=== PATIENT | female | born 1995 | race Caucasian/White ===

== ENCOUNTER 2018-02-10 23:14 | Inpatient (IN) | payer OTHER, BC ==
[2018-02-11] MEDS ORDERED: Oxytocin/0.9 % Sodium Chloride 30 UNIT/500 ML BAG ONE (02:40)
[2018-02-11] MEDS ORDERED: Lidocaine 1% 50 ML MDV ONE (02:42)
--- NOTE | 2018-02-11 05:19 | OR ---
SURGEON: Naomi Monteiro M.D. DATE OF PROCEDURE: 02/11/2018 PREOPERATIVE DIAGNOSES: 1. A 41 and 4 weeks' intrauterine . 2. Active labor. POSTOPERATIVE DIAGNOSIS: 1. A 41 and 4 weeks' intrauterine . 2. Active labor. PROCEDURES: Spontaneous vaginal delivery, second-degree midline laceration repaired. ANESTHESIA: Local. ESTIMATED FLUID LOSS: 300 mL. FINDINGS: Term male, score 9 at 1 minute, 9 at 5 minutes. Weight is pending. Spontaneous delivery, intact placenta, 3-vessel cord. DISPOSITION: Infant to nursery, mom in LDRP. PROCEDURE IN DETAIL: Angela is a 22-year-old, G3, P2-0-0-2 at 41 and 4 weeks' gestational age, who presents early this morning with regular contractions, and shortly after 1:00 a.m. at approximately 1:25 a.m., had leakage of fluids, clear fluid. She is group B beta strep negative. Therefore, she was admitted. Routine labs drawn. IV hydration was initiated. She was found to be 7 cm and quickly progressed to complete. heart tones remained in 130s to 140s with variability. The patient was feeling the urge to push. Therefore, she was placed in modified dorsal lithotomy position and was prepped and draped in the usual aseptic manner. Was able to push with the next contraction, was able to deliver 's head atraumatically, spontaneously, followed by anterior shoulder, posterior shoulder, and the remainder of the body without difficulty. The 's oropharynx and nares were bulb suctioned. Cord clamped x2 and cut. was handed off to his mother, attending nursing staff at her side. Cord arterial, cord venous, cord blood sampling obtained. Light pressure was applied while the placenta was delivered spontaneously intact. Vigorous fundal uterine massage was then applied while 30 units of Pitocin was delivered in 500 mL of fluid. Upon inspection of cervix, vaginal sidewall, and perineum, there was found to be a second-degree midline laceration repaired using 3-0 Vicryl after prepping the region with approximately 7 mL of 1% lidocaine. The patient tolerated the repair well. She will remain in LDRP. Infant in nursery. MANA / LAST /[id number]
[2018-02-11] MEDS ORDERED: Lanolin 100% Cream 7 GM Tube TOP PRN (06:18)
[2018-02-11] MEDS ORDERED: Benzocaine/Menthol 20%-0.5% Spray 78 GM Cannister TOP PRN (06:18)
[2018-02-11] MEDS ORDERED: oxyCODONE 5 MG Tab PO PRN (06:18)
[2018-02-11] MEDS ORDERED: Docusate Sodium 100 MG Cap PO PRN (06:18)
[2018-02-11] MEDS ORDERED: Ibuprofen 800 MG Tab PO PRN (06:18)
[2018-02-11] MEDS ORDERED: Ibuprofen 400 MG Tab PO PRN (06:18)
[2018-02-11] MEDS ORDERED: Bisacodyl 10 MG Supp RECTAL PRN (06:18)
[2018-02-11] MEDS ORDERED: Acetaminophen 500 MG Tab PO PRN ×2 (06:18)
[2018-02-11] MEDS ORDERED: Witch Hazel Medicated Pads 40/Jar TOP PRN (06:18)
--- NOTE | 2018-02-12 07:52 | PCM.PNPP ---
- General Info Date of Service: 02/12/18 Admission Dx/Problem (Free Text): 22 yo P3 s/p PPD 1 Subjective Update: Patient seen denies any complains ambulating , voiding and tolerating regular diet Functional Status: Reports: Pain Controlled, Tolerating Diet, Ambulating, Urinating - Review of Systems General: Reports: No Symptoms HEENT: Reports: No Symptoms Pulmonary: Reports: No Symptoms Cardiovascular: Reports: No Symptoms Gastrointestinal: Reports: No Symptoms Genitourinary: Reports: No Symptoms Musculoskeletal: Reports: No Symptoms Skin: Reports: No Symptoms Neurological: Reports: No Symptoms Psychiatric: Reports: No Symptoms - General Info Date of Service: 02/12/18 - Patient Data Vital Signs - Most Recent: Last Vital Signs Temp 37.0 C 02/12/18 03:45 Pulse 66 02/12/18 03:45 Resp 16 02/12/18 03:45 BP 107/65 02/12/18 03:45 Pulse Ox 98 02/12/18 03:45 Weight - Most Recent: 54.431 kg Lab Results - Last 24 Hours: Laboratory Results - last 24 hr 02/12/18 Range/Units 04:40 Hgb 9.1 L (12.0-16.0) g/dL Hct 29.1 L (36.0-46.0) % Med Orders - Current: Current Medications Acetaminophen (Tylenol Extra Strength) 500 mg PO Q4H PRN PRN Reason: Pain Acetaminophen (Tylenol Extra Strength) 1,000 mg PO Q4H PRN PRN Reason: Pain Benzocaine/Menthol (Dermoplast Pain Relief 20%-0.5% [place]) 78 gm TOP ASDIRECTED PRN PRN Reason: Perineal Comfort Measure Last Admin: 02/11/18 08:15 Dose: 1 can Bisacodyl (Dulcolax) 10 mg RECTAL .ONCE PRN PRN Reason: Constipation Docusate Sodium (Colace) 100 mg PO BID PRN PRN Reason: Constipation Emollient Ointment (Lansinoh Hpa) 0 gm TOP ASDIRECTED PRN PRN Reason: Sore Nipples Ibuprofen (Motrin) 400 mg PO Q4H PRN PRN Reason: Pain Ibuprofen (Motrin) 800 mg PO Q6H PRN PRN Reason: Pain Last Admin: 02/11/18 16:07 Dose: 800 mg Oxycodone HCl (Oxycodone) 5 mg PO Q2H PRN PRN Reason: Pain Witch Cate (Tucks) 1 pad TOP ASDIRECTED PRN PRN Reason: comfort care Discontinued Medications Oxytocin/Sodium Chloride (Oxytocin 30 Unit/500 Ml-Ns) Confirm Administered Dose 30 unit in 500 mls @ as directed .ROUTE .STK-MED ONE Stop: 02/11/18 02:41 Last Admin: 02/11/18 08:50 Dose: Not Given Lidocaine HCl (Xylocaine 1%) Confirm Administered Dose 50 ml .ROUTE .STK-MED ONE Stop: 02/11/18 02:43 Last Admin: 02/11/18 08:50 Dose: Not Given - Infant Interaction Support Person: - Recovery Exam Fundal Tone: Firm Fundal Level: 2 Fingerbreadths Below Umbilicus Fundal Placement: Midline Lochia Amount: Scant Lochia Color: Rubra/Red Perineum Description: Intact, Minimal Bruising/Swelling Other Perinuem Description: 2nd degree laceration Episiotomy/Laceration: Approximated Bladder Status: Voiding Urinary Elimination: Voided - Exam General: Alert HEENT: Pupils Equal Lungs: Clear to Auscultation Cardiovascular: Regular Rate, Regular Rhythm GI/Abdominal Exam: Normal Bowel Sounds Extremities: Normal Inspection Skin: Warm - Problem List & Annotations (1) Vaginal delivery SNOMED Code(s): 449547896 Code(s): O80 - ENCOUNTER FOR FULL-TERM UNCOMPLICATED DELIVERY Status: Acute Current Visit: Yes - Problem List Review Problem List Initiated/Reviewed/Updated: Yes - Assessment Assessment:: 22 yo P3 s/p PPD1 stable - Plan Plan:: Discharge home
[2018-02-12 08:30] VITALS: BP 101/63
== END 2018-02-12 10:25 | disposition home or self-care (01) | DRG 775 ==
LOC: MW.OBCHECK 23:14 → MW.OB 23:15 → MW.OBCHECK 02-11 00:18 → MW.OB 02-11 00:18 → OBSVTOIN 02-11 03:09 → MW.OB 02-11 06:40
PROVIDERS: ADMIT Obstetrics & Gynecology; ATTEND Obstetrics & Gynecology
PROC: 10E0XZZ Delivery of Products of Conception, External Approach (ICD-10-PCS; principal; 2018-02-11)
PROC: 0KQM0ZZ Repair Perineum Muscle, Open Approach (ICD-10-PCS; 2018-02-11)
DX: O70.1 Second degree perineal laceration during delivery (principal); Z37.0 Single live birth; Z3A.41 41 weeks gestation of pregnancy
CPT/HCPCS: 36415; 59025; 59409; 82803; 84112; 85014; 85018; 85027; A9270-GY; J2590

== ENCOUNTER 2020-02-12 21:59 | Emergency (ER) | payer OTHER ==
[2020-02-12] MEDS ORDERED: Sodium Chloride 0.9% 2.5 ML Syringe FLUSH PRN (22:23)
[2020-02-12] MEDS ORDERED: Lactated Ringers 1,000 ML IV ONE ×2 (22:23)
[2020-02-12] MEDS ORDERED: Sodium Chloride 0.9% 10 ML Syringe FLUSH PRN (22:23)
[2020-02-12] MEDS ORDERED: Sodium Chloride 0.9% 10 ML SDV IV PRN (22:23)
[2020-02-12 22:59] LABS: BLOOD UREA NITROGEN,BUN 3 mg/dL (7.0-18.0); CARBON DIOXIDE,CO2 21.4 mmol/L (21.0-32.0); CHLORIDE,CL 104 mmol/L (98-107); GLUCOSE RANDOM 110 mg/dL (74-106); POTASSIUM,K 3.3 mmol/L (3.5-5.1); SODIUM,NA 138 mmol/L (136-145)
--- NOTE | 2020-02-12 23:27 | EDM.PDOC ---
ED HPI GENERAL MEDICAL PROBLEM - General Chief Complaint: Cardiovascular Problem Stated Complaint: HEART PALPITATIONS Time Seen by Provider: 02/12/20 22:00 Source of Information: Reports: Patient History Limitations: Reports: No Limitations - History of Present Illness INITIAL COMMENTS - FREE TEXT/NARRATIVE: This patient is a 24-year-old female, approximately 13 weeks hyperthyroidism (on PTU), hyperemesis gravidarum presenting with palpitations. Patient states that she frequently receives IV fluid infusions for hyperemesis gravidarum and last had an infusion today. - Related Data Allergies Allergy/AdvReac Type Severity Reaction Status Date / Time No Known Allergies Allergy Verified 02/12/20 22:25 Home Meds: Home Meds Pnv No.95/Ferrous Fum/Folic AC [ Tablet] 1 tab PO DAILY 02/10/18 [ History] Metoprolol Succinate [Toprol XL] 25 mg PO DAILY 02/12/20 [History] Ondansetron [Zofran ODT] 4 mg PO Q6H PRN 02/12/20 [History] propylthiouraciL [Propylthiouracil] 50 mg PO TID 02/12/20 [History] Past Medical History HEENT History: Reports: None Cardiovascular History: Reports: Other (See Below) Other Cardiovascular History: Palpitations Respiratory History: Reports: None Gastrointestinal History: Reports: None Genitourinary History: Reports: None PSYCHOLOGIST CLINICAL History: Reports: Musculoskeletal History: Reports: None Neurological History: Reports: None Psychiatric History: Reports: None Endocrine/Metabolic History: Reports: Hyperthyroidism Insulin Pump Model and Admitting Office Escort: None Hematologic History: Reports: None Immunologic History: Reports: None Oncologic (Cancer) History: Reports: None Dermatologic History: Reports: None - Infectious Disease History Infectious Disease History: Reports: None - Past Surgical History Head Surgeries/Procedures: Reports: None HEENT Surgical History: Reports: Oral Surgery Female Surgical History: Reports: None Social & Family History - Family History Family Medical History: Noncontributory - Tobacco Use Smoking Status *Q: Never Smoker - Caffeine Use Caffeine Use: Reports: None - Recreational Drug Use Recreational Drug Use: No ED ROS GENERAL - Review of Systems Review Of Systems: See Below Constitutional: Denies: Fever HEENT: Reports: No Symptoms Respiratory: Denies: Shortness of Breath Cardiovascular: Reports: Palpitations. Denies: Chest Pain, Edema, Lightheadedness, Orthopnea, Syncope Endocrine: Reports: No Symptoms GI/Abdominal: Denies: Abdominal Pain, Nausea, Vomiting : Reports: No Symptoms Musculoskeletal: Reports: No Symptoms Skin: Reports: No Symptoms Neurological: Reports: No Symptoms Psychiatric: Reports: No Symptoms Hematologic/Lymphatic: Reports: No Symptoms Immunologic: Reports: No Symptoms ED EXAM, GENERAL - Physical Exam Exam: See Below Free Text/Narrative:: Vital signs reviewed. Nursing notes reviewed. Constitutional: Awake, alert, non-distressed Head: Normocephalic, atraumatic Eyes: EOMI, conjunctiva normal, no discharge, no scleral icterus Ears, Nose, Throat: External ears and ears normal, moist oral mucosa, no thyromegaly Cardiovascular: Tachycardic, 2+ radial pulse, capillary refill less than 2 seconds Pulmonary: normal work of breathing, no accessory muscle use Abdomen/GI: Soft, nontender, nondistended, no guarding or rigidity, no masses Musculoskeletal: No deformities Integumentary: Appropriate color for ethnicity, warm, dry, no pallor or jaundice , no rash Neurologic: Alert, answering questions appropriately, normal speech, no facial droop, moving all extremities well Psychiatric: Appropriate mood and affect, normal thought process EKG INTERPRETATION EKG Date: 02/12/20 Time: 22:17 Rhythm: Other (Sinus tachycardia) Rate (Beats/Min): 113 [place]: Normal P-Wave: Present QRS: Other (Incomplete right bundle branch block) ST-T: Other (T wave inversions in V2) EKG Interpretation Comments: Subtle, nondiagnostic ST segment depressions in leads III, aVF, V3. Course - Vital Signs Text/Narrative:: 24-year-old female presenting with palpitations. On arrival she was initially tachycardic but afebrile, well-appearing, looks nontoxic. Twelve-lead EKG was obtained showing sinus tachycardia but no acute ischemia or ectopy. IV access was established and labs were sent. Patient received 2 L of lactated Ringer's with normalization of her heart rate. Labs returned with a CBC showing normal cell lines, chemistry panel shows mild hypokalemia to 3.3. Renal function is normal. Troponin testing is negative. TSH is undetectable, free T4 is 2.39 which is not far from her baseline. After fluid resuscitation, her heart rate normalized and she was no longer feeling palpitations. Her twelve-lead EKG did show some subtle ST segment depression, but the patient never experienced any chest discomfort or shortness of breath. Given these facts, I am not concerned for myocardial ischemia, also her troponin I testing is negative. She is well-appearing and her symptoms totally resolved after fluids. She is stable to discharge home with outpatient primary care follow- up. I recommended that she get in contact with the doctor who prescribing her hyperthyroid medications to have them reevaluated given her intermittent palpitations. Strict ED return precautions were provided. She was discharged in good condition, all questions answered prior to departure. Last Recorded V/S: Last Vital Signs Temp 36.4 C 02/12/20 22:00 Pulse 97 02/13/20 00:30 Resp 16 02/13/20 00:30 BP 119/74 02/13/20 00:30 Pulse Ox 98 02/13/20 00:30 - Orders/Labs/Meds Orders: Active Orders 24 hr Category Date Time Status Cardiac Monitoring [RC] . DIRECTED Care 02/12/20 22:23 Active EKG 12 Lead [EKG Documentation Completion] [RC] STAT Care 02/12/20 22:35 Active Sodium Chloride 0.9% [Normal Saline] Med 02/12/20 22:23 Active 10 ml IV ASDIRECTED PRN Sodium Chloride 0.9% [Saline Flush] Med 02/12/20 22:23 Active 10 ml FLUSH ASDIRECTED PRN Sodium Chloride 0.9% [Saline Flush] Med 02/12/20 22:23 Active 2.5 ml FLUSH ASDIRECTED PRN Peripheral IV Insertion Adult [OM.PC] Stat Oth 02/12/20 22:23 Ordered Medication Orders Sodium Chloride (Saline Flush) 10 ml FLUSH ASDIRECTED PRN PRN Reason: Keep Vein Open Last Admin: 02/13/20 00:28 Dose: 10 ml Sodium Chloride (Saline Flush) 2.5 ml FLUSH ASDIRECTED PRN PRN Reason: Keep Vein Open Last Admin: 02/13/20 00:28 Dose: 2.5 ml Sodium Chloride (Normal Saline) 10 ml IV ASDIRECTED PRN PRN Reason: IV Use Labs: Laboratory Tests 02/12/20 02/12/20 02/12/20 Range/Units 22:25 22:25 23:27 WBC 8.03 (4.0-11.0) K/uL RBC 4.85 (4.30-5.90) M/uL Hgb 14.3 (12.0-16.0) g/dL Hct 40.2 (36.0-46.0) % MCV 82.9 (80.0-98.0) fL MCH 29.5 (27.0-32.0) pg MCHC 35.6 (31.0-37.0) g/dL RDW Std Deviation 37.2 (28.0-62.0) fl RDW Coeff of Lxe 12 (11.0-15.0) % Plt Count 276 (150-400) K/uL MPV 9.90 (7.40-12.00) fL Neut % (Auto) 56.1 (48.0-80.0) % Lymph % (Auto) 34.5 (16.0-40.0) % [place] % (Auto) 8.6 (0.0-15.0) % Eos % (Auto) 0.7 (0.0-7.0) % Baso % (Auto) 0.1 (0.0-1.5) % Neut # (Auto) 4.5 (1.4-5.7) K/uL Lymph # (Auto) 2.8 H (0.6-2.4) K/uL [place] # (Auto) 0.7 (0.0-0.8) K/uL Eos # (Auto) 0.1 (0.0-0.7) K/uL Baso # (Auto) 0.0 (0.0-0.1) K/uL Nucleated RBC % 0.0 /100WBC Nucleated RBCs # 0 K/uL Sodium 138 (136-145) mmol/L Potassium 3.3 L (3.5-5.1) mmol/L Chloride 104 (98-107) mmol/L Carbon Dioxide 21.4 (21.0-32.0) mmol/L BUN 3 L (7.0-18.0) mg/dL Creatinine 0.6 (0.6-1.0) mg/dL Est Cr Clr Drug Dosing 131.25 mL/min Estimated GFR (MDRD) > 60.0 ml/min Glucose 110 H (74-106) mg/dL Calcium 8.5 (8.5-10.1) mg/dL Total Bilirubin 0.4 (0.2-1.0) mg/dL AST 15 (15-37) IU/L ALT 9 L (14-63) IU/L Alkaline Phosphatase 58 (46-116) U/L Troponin I < 0.050 (0.000-0.056) ng/mL Total Protein 6.1 L (6.4-8.2) g/dL Albumin 3.2 L (3.4-5.0) g/dL Globulin 2.9 (2.6-4.0) g/dL Albumin/Globulin Ratio 1.1 (0.9-1.6) Free T4 2.39 H (0.76-1.46) ng/dL TSH 3rd Generation 0.00 L (0.36-3.74) uIU/mL Meds: Medications Generic Name Dose Route Start Last Admin Trade Name Freq PRN Reason Stop Dose Admin Sodium Chloride 10 ml 02/12/20 22:23 02/13/20 00:28 Saline Flush FLUSH 10 ml ASDIRECTED PRN Administration Keep Vein Open Sodium Chloride 2.5 ml 02/12/20 22:23 02/13/20 00:28 Saline Flush FLUSH 2.5 ml ASDIRECTED PRN Administration Keep Vein Open Sodium Chloride 10 ml 02/12/20 22:23 Normal Saline IV ASDIRECTED PRN IV Use Discontinued Medications Generic Name Dose Route Start Last Admin Trade Name Freq PRN Reason Stop Dose Admin Lactated Ringer's 1,000 mls @ 1,000 mls/hr 02/12/20 22:23 02/12/20 22:33 Ringers, Lactated IV 02/12/20 23:22 1,000 mls/hr .BOLUS ONE Administration Lactated Ringer's 1,000 mls @ 1,000 mls/hr 02/12/20 22:23 02/12/20 23:40 Ringers, Lactated IV 02/12/20 23:22 1,000 mls/hr .BOLUS ONE Administration Departure - Departure Time of Disposition: 00:45 Disposition: Home, Self-Care 01 Condition: Good Clinical Impression: Intermittent palpitations, Hypokalemia Instructions: Hypokalemia, Palpitations Referrals: [facility] - [facility] Practice [Provider Group] - 1 Week (You should contact your primary medical doctor or establish care with a primary medical clinic in the next week for reevaluation of your symptoms.) Forms: ED Department Discharge Additional Instructions: Your potassium level was slightly low, you can increase this by eating certain foods that have high potassium content such as black beans, tomato sauce, potatoes, bananas, etc. I also recommend getting in contact with the doctor that is managing your hyperthyroidism medications to have them reevaluated given your palpitations. Please return to the emergency department immediately if you are feeling worse. The following information is given to patients seen in the emergency department who are being discharged to home. This information is to outline your options for follow-up care. We provide all patients seen in our emergency department with a follow-up referral. The need for follow-up, as well as the timing and circumstances, are variable depending upon the specifics of your emergency department visit. If you don't have a primary care physician on staff, we will provide you with a referral. We always advise you to contact your personal physician following an emergency department visit to inform them of the circumstance of the visit and for follow-up with them and/or the need for any referrals to a consulting specialist. The emergency department will also refer you to a specialist when appropriate. This referral assures that you have the opportunity for follow-up care with a specialist. All of these measure are taken in an effort to provide you with optimal care, which includes your follow-up. Under all circumstances we always encourage you to contact your private physician who remains a resource for coordinating your care. When calling for follow-up care, please make the office aware that this follow-up is from your recent emergency room visit. If for any reason you are refused follow-up, please contact the [facility] Emergency Department at and asked to speak to the emergency department charge nurse. Sepsis Event Note - Evaluation Sepsis Screening Result: No Definite Risk - Focused Exam Vital Signs: Vital Signs Temp Pulse Resp BP Pulse Ox 02/13/20 00:30 97 16 119/74 98 02/13/20 00:04 92 121/71 100 02/12/20 23:34 90 121/70 99 02/12/20 22:39 93 18 119/73 98 02/12/20 22:00 36.4 C 135 H 18 148/94 H 98 Date Exam was Performed: 02/13/20 Time Exam was Performed: 00:41 - My Orders Last 24 Hours: My Active Orders 02/12/20 22:23 Cardiac Monitoring [RC] . DIRECTED Sodium Chloride 0.9% [Normal Saline] 10 ml IV ASDIRECTED PRN Sodium Chloride 0.9% [Saline Flush] 10 ml FLUSH ASDIRECTED PRN Sodium Chloride 0.9% [Saline Flush] 2.5 ml FLUSH ASDIRECTED PRN Peripheral IV Insertion Adult [OM.PC] Stat 02/12/20 22:35 EKG 12 Lead [EKG Documentation Completion] [RC] STAT - Assessment/Plan Last 24 Hours: My Active Orders 02/12/20 22:23 Cardiac Monitoring [RC] . DIRECTED Sodium Chloride 0.9% [Normal Saline] 10 ml IV ASDIRECTED PRN Sodium Chloride 0.9% [Saline Flush] 10 ml FLUSH ASDIRECTED PRN Sodium Chloride 0.9% [Saline Flush] 2.5 ml FLUSH ASDIRECTED PRN Peripheral IV Insertion Adult [OM.PC] Stat 02/12/20 22:35 EKG 12 Lead [EKG Documentation Completion] [RC] STAT
[2020-02-13 00:59] VITALS: BP 117/72; PULSE 96
== END 2020-02-13 00:57 | disposition home or self-care (01) ==
LOC: MW.ED 21:59
DX: O99.281 Endocrine, nutritional and metabolic diseases complicating pregnancy, first trimester (principal); E87.6 Hypokalemia; Z3A.13 13 weeks gestation of pregnancy; Z79.899 Other long term (current) drug therapy
CPT/HCPCS: 36415; 80053; 84439; 84443; 84484; 85025; 93005; 99285; J7120; 99283

== ENCOUNTER 2020-08-24 12:30 | Inpatient (IN) | payer OTHER ==
[2020-08-24] MEDS ORDERED: Tranexamic Acid 1,000 MG in Sodium Chloride 0.9% 100 ML IV PRN (13:12)
[2020-08-24] MEDS ORDERED: Butorphanol 1 MG/ML SDV IVPUSH PRN (13:12)
[2020-08-24] MEDS ORDERED: Lidocaine 1% 50 ML MDV INJECT PRN (13:12)
[2020-08-24] MEDS ORDERED: Nalbuphine 10 MG/1 ML Vial IVPUSH PRN (13:12)
[2020-08-24] MEDS ORDERED: Sodium Chloride 0.9% 2.5 ML Syringe FLUSH PRN (13:12)
[2020-08-24] MEDS ORDERED: Carboprost Tromethamine 250 MCG/1 ML Amp IM PRN (13:12)
[2020-08-24] MEDS ORDERED: Misoprostol 200 MCG Tab PO PRN (13:12)
[2020-08-24] MEDS ORDERED: Sodium Chloride 0.9% 10 ML SDV IV PRN (13:12)
[2020-08-24] MEDS ORDERED: Sodium Chloride 0.9% 10 ML Syringe FLUSH PRN (13:12)
[2020-08-24] MEDS ORDERED: Water For Irrigation,Sterile 1,000 ML Container IRR PRN (13:12)
[2020-08-24] MEDS ORDERED: Methylergonovine 0.2 MG/1 ML Amp IM PRN (13:12)
[2020-08-24] MEDS ORDERED: Lactated Ringers 1,000 ML IV SCH (13:15)
[2020-08-24] MEDS ORDERED: Oxytocin/0.9 % Sodium Chloride 30 UNIT/500 ML BAG IV SCH (13:15)
--- NOTE | 2020-08-24 14:01 | PCM.LDHP ---
L&D History of Present Illness - General Date of Service: 08/24/20 Admit Problem/Dx: Patient Status Order with Admit Dx/Problem 08/24/20 13:13 Patient Status [ADT] Routine Admission Diagnosis/Problem Admission Diagnosis/Problem Source of Information: Patient History Limitations: Reports: No Limitations - History of Present Illness Introduction:: 25yo F at 40w3d GA presented today in labor. care complicated by hyperthyroidism, that reverted to subclinical hypothyroidism. Currently on Metoprolol and vitamins only. She is also Rh negative, but has declined rhogam throughout the . Reports she started feeling increasing pressure since last night, and contractions every 1hour. 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: Musculoskeletal History: Reports: None Neurological History: Reports: None Psychiatric History: Reports: None Endocrine/Metabolic History: Reports: Hyperthyroidism, Hypothyroidism 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 Hematologic History: Reports: None Immunologic History: Reports: None Oncologic (Cancer) History: Reports: None Dermatologic History: Reports: None - Infectious Disease History Infectious Disease History: Reports: None - Past Surgical History Head Surgeries/Procedures: Reports: None HEENT Surgical History: Reports: Oral Surgery Female Surgical History: Reports: None Social & Family History - Family History Family Medical History: No Pertinent Family History - Caffeine Use Caffeine Use: Reports: None H&P Review of Systems - Review of Systems: Review Of Systems: See Below General: Reports: No Symptoms HEENT: Reports: No Symptoms Pulmonary: Reports: No Symptoms Cardiovascular: Reports: No Symptoms Genitourinary: Reports: No Symptoms Musculoskeletal: Reports: No Symptoms Skin: Reports: No Symptoms Psychiatric: Reports: No Symptoms L&D Exam - Exam Exam: See Below - Vital Signs Weight: 66.678 kg - OB Specific Contraction Duration (sec): 45s Contraction Frequency (min): 2-3mns Contraction Intensity: Mild to Moderate Movement: Active Heart Tones: Present Heart Rate (FHR) Variability: Moderate (6-25 bmp) Presentation: Vertex Estimated Weight: 6"12 - Elizabeth Score Elizabeth Score Cervix Position: Midposition Elizabeth Score Consistency: Soft Elizabeth Score Effacement: >80% Elizabeth Score Dilation: > 5 cm Elizabeth Score Infant's Station: -1 ,0 Elizabeth Score Total: 11 - Patient Data Lab Results Last 24 hrs: Laboratory Results - last 24 hr 08/24/20 Range/Units 13:10 WBC 12.58 H (4.0-11.0) K/uL RBC 4.80 (4.30-5.90) M/uL Hgb 12.1 (12.0-16.0) g/dL Hct 38.5 (36.0-46.0) % MCV 80.2 (80.0-98.0) fL MCH 25.2 L (27.0-32.0) pg MCHC 31.4 (31.0-37.0) g/dL RDW Std Deviation 41.5 (28.0-62.0) fl RDW Coeff of Lex 14 (11.0-15.0) % Plt Count 278 (150-400) K/uL MPV 9.70 (7.40-12.00) fL Nucleated RBC % 0.0 /100WBC Nucleated RBCs # 0 K/uL Result Diagrams: 08/24/20 13:10 - Problem List (1) Term SNOMED Code(s): 39889489 ICD Code: Z34.90 - ENCNTR FOR SUPRVSN OF NORMAL , UNSP, UNSP TRIMESTER Status: Acute Priority: Medium Current Visit: Yes (2) Active labor at term SNOMED Code(s): 34376544 ICD Code: [id number] - Status: Acute Priority: High Current Visit: Yes Problem List Initiated/Reviewed/Updated: Yes Orders Last 24hrs: Active Orders 24 hr Category Date Time Status Patient Status [ADT] Routine ADT 08/24/20 13:13 Active Heart Tones [RC] CONTINUOUS Care 08/24/20 13:13 Active Non Stress Test [RC] PER UNIT ROUTINE Care 08/24/20 13:13 Active May Shower [RC] ASDIRECTED Care 08/24/20 13:13 Active Notify Provider [RC] PRN Care 08/24/20 13:13 Active Up ad Geraldine [RC] ASDIRECTED Care 08/24/20 13:13 Active Vaginal Exam [RC] PRN Care 08/24/20 13:13 Active Vital Signs [RC] PER UNIT ROUTINE Care 08/24/20 13:13 Active CORONAVIRUS COVID-19 DREW [MOLEC] Stat Lab 08/24/20 13:17 Received RPR (SYPHILIS SERO) W/ RFLX [REF] Routine Lab 08/24/20 13:10 Received TYPE AND SCREEN [BBK] Routine Lab 08/24/20 13:10 Received Butorphanol [Stadol] Med 08/24/20 13:12 Active 1 mg IVPUSH Q1H PRN Carboprost Tromethamine [Hemabate DS] Med 08/24/20 13:12 Active 250 mcg IM ASDIRECTED PRN Lactated Ringers [Ringers, Lactated] 1,000 ml Med 08/24/20 13:15 Active IV ASDIRECTED Lidocaine 1% [Xylocaine 1%] Med 08/24/20 13:12 Active 50 ml INJECT ONETIME PRN Methylergonovine [Methergine] Med 08/24/20 13:12 Active 0.2 mg IM ASDIRECTED PRN Nalbuphine [Nubain] Med 08/24/20 13:12 Active 10 mg IVPUSH Q1H PRN Oxytocin/0.9 % Sodium Chloride [Oxytocin 30 Unit/500 ML Med 08/24/20 13:15 Active -NS] 30 unit in 500 ml IV TITRATE Sodium Chloride 0.9% [Normal Saline] Med 08/24/20 13:12 Active 10 ml IV ASDIRECTED PRN Sodium Chloride 0.9% [Saline Flush] Med 08/24/20 13:12 Active 10 ml FLUSH ASDIRECTED PRN Sodium Chloride 0.9% [Saline Flush] Med 08/24/20 13:12 Active 2.5 ml FLUSH ASDIRECTED PRN Tranexamic Acid [Cyklokapron] 1,000 mg Med 08/24/20 13:12 Active Sodium Chloride 0.9% [Normal Saline] 100 ml IV ONETIME Water For Irrigation,Sterile [Sterile Water for Med 08/24/20 13:12 Active Irrigation] 1,000 ml IRR ASDIRECTED PRN miSOPROStoL [Cytotec] Med 08/24/20 13:12 Active 200 mcg PO ONETIME PRN Scalp Electrode [WOMSER] Per Unit Routine Oth 08/24/20 13:13 Ordered Peripheral IV Insertion Adult [OM.PC] Routine Oth 08/24/20 13:13 Ordered Resuscitation Status Routine Resus Stat 08/24/20 13:12 Ordered Medication Orders Butorphanol Tartrate (Stadol) 1 mg IVPUSH Q1H PRN PRN Reason: Pain Carboprost Tromethamine (Hemabate Ds) 250 mcg IM ASDIRECTED PRN PRN Reason: Post Hemorrhage Oxytocin/Sodium Chloride (Oxytocin 30 Unit/500 Ml-Ns) 30 unit in 500 mls @ 999 mls/hr IV TITRATE ALISON Tranexamic Acid 1,000 mg/ (Sodium Chloride) 110 mls @ 660 mls/hr IV ONETIME PRN PRN Reason: Bleeding Lactated Ringer's (Ringers, Lactated) 1,000 mls @ 150 mls/hr IV ASDIRECTED ALISON Lidocaine HCl (Xylocaine 1%) 50 ml INJECT ONETIME PRN PRN Reason: Laceration repair Methylergonovine Maleate (Methergine) 0.2 mg IM ASDIRECTED PRN PRN Reason: Post Hemorrhage Misoprostol (Cytotec) 200 mcg PO ONETIME PRN PRN Reason: Post Hemorrhage Nalbuphine HCl (Nubain) 10 mg IVPUSH Q1H PRN PRN Reason: Pain (severe 7-10) Sodium Chloride (Saline Flush) 10 ml FLUSH ASDIRECTED PRN PRN Reason: Keep Vein Open Sodium Chloride (Saline Flush) 2.5 ml FLUSH ASDIRECTED PRN PRN Reason: Keep Vein Open Sodium Chloride (Normal Saline) 10 ml IV ASDIRECTED PRN PRN Reason: IV Use Sterile Water (Sterile Water For Irrigation) 1,000 ml IRR ASDIRECTED PRN PRN Reason: delivery Assessment/Plan Comment:: 25yo at 40w2d admitted in active labor. Elizabeth score 11. Cat 1 tracing Expectant management Epidural PRN Rhogam and Thyroid Function panel
[2020-08-24] MEDS ORDERED: Ibuprofen 800 MG Tab PO PRN (15:28)
[2020-08-24] MEDS ORDERED: Witch Hazel Medicated Pads 40/Jar TOP PRN (15:28)
[2020-08-24] MEDS ORDERED: Docusate Sodium 100 MG Cap PO PRN (15:28)
[2020-08-24] MEDS ORDERED: Lanolin 100% Cream 7 GM Tube TOP PRN (15:28)
[2020-08-24] MEDS ORDERED: Benzocaine/Menthol 20%-0.5% Spray 78 GM Cannister TOP PRN (15:28)
[2020-08-24] MEDS ORDERED: Bisacodyl 10 MG Supp RECTAL PRN (15:28)
[2020-08-24] MEDS ORDERED: oxyCODONE 5 MG Tab PO PRN (15:28)
[2020-08-24] MEDS ORDERED: Ibuprofen 400 MG Tab PO PRN (15:28)
[2020-08-24] MEDS ORDERED: Acetaminophen 500 MG Tab PO PRN ×2 (15:28)
[2020-08-24] MEDS ORDERED: Methylergonovine 0.2 MG/1 ML Amp ONE (15:34)
--- NOTE | 2020-08-24 15:38 | PCM.DEL ---
L & D Note - General Info Date of Service: 08/24/20 Mother's Due Date: 08/21/20 - Delivery Note Labor: Spontaneous Delivery Outcome: Livebirth Infant Delivery Method: Spontaneous Vaginal Delivery-Single Delivery Mode: Spontaneous Presentation: Vertex Nuchal Cord: None Anesthesia Type: None Amniotic Fluid Description: Clear Episiotomy Type: None Laceration: 1st Degree, Labial Suture type: Vicryl Suture size: 3-0 Placenta: Intact, Spontaneous Cord: 3 Vessels Estimated Blood Loss: 800 Resuscitation Needed: No : Stimulated, Warmed, [place] Used Score 1 min: 8 Score 5 min: 9 Second Stage Interventions: Reports: Encouragement Given, Pushing Effectively, Pushing, Knee Chest Position Delivery Comments (Free Text/Narrative):: Angela is a 25 yo at 40+3 weeks gestation (HITESH 08/21/2020) S/P uncomplicated of term, viable NBF. AB neg with declined RhoGam in , [place], GBS neg. Unmedicated, coped well. Cephalic presentation on hands/knees position. head delivered spontaneously with SROM, body following shortly after with the next push. Patient turned to semi-fowlers position and NBF placed to maternal abdomen, warmed, dried, stimulated with spontaneous cries. Umbilical cord left intact until of placenta with gentle cord traction ~8 min S/P , clamped x 2, cut by FOB. Declined pitocin bolus at this time. Placenta appeared to be intact, Rodriguez, 3VC with sheet-like nature to membranes, Dr. Garcia notified. Perineum inspected, 1st degree labial laceration repaired with 3.[address], hemostatic. Uterus firm @U-1. Moderate to large vaginal bleeding with one large clot noted, IV pitocin bolus commenced. EBL ~800 ml. APGARS 8/9. weight pending. 1000 ml LR bolus ordered upon completion of IV pitocin infusion. 0.2 mg methergine IM and urination or I/O catheter advised to be completed now. - General Info Date of Service: 08/24/20 Admission Dx/Problem (Free Text): Patient Status Order with Admit Dx/Problem 08/24/20 13:13 Patient Status [ADT] Routine Admission Diagnosis/Problem Admission Diagnosis/Problem Functional Status: Reports: Pain Controlled, Tolerating Diet, Ambulating - Review of Systems General: Reports: No Symptoms HEENT: Reports: No Symptoms Pulmonary: Reports: No Symptoms Cardiovascular: Reports: No Symptoms Gastrointestinal: Reports: No Symptoms Genitourinary: Reports: No Symptoms Musculoskeletal: Reports: No Symptoms Skin: Reports: No Symptoms Neurological: Reports: No Symptoms Psychiatric: Reports: No Symptoms - Patient Data Vitals - Most Recent: BP 132/75 (87); HR 109; T 98.1 F Weight - Most Recent: 147 lb Lab Results Last 24 Hours: Laboratory Results - last 24 hr 08/24/20 08/24/20 08/24/20 Range/Units 13:10 13:10 13:10 WBC 12.58 H (4.0-11.0) K/uL RBC 4.80 (4.30-5.90) M/uL Hgb 12.1 (12.0-16.0) g/dL Hct 38.5 (36.0-46.0) % MCV 80.2 (80.0-98.0) fL MCH 25.2 L (27.0-32.0) pg MCHC 31.4 (31.0-37.0) g/dL RDW Std Deviation 41.5 (28.0-62.0) fl RDW Coeff of Lex 14 (11.0-15.0) % Plt Count 278 (150-400) K/uL MPV 9.70 (7.40-12.00) fL Nucleated RBC % 0.0 /100WBC Nucleated RBCs # 0 K/uL SARS-CoV-2 RNA (DREW) (NEGATIVE) Blood Type B NEGATIVE Antibody Screen NEGATIVE Crossmatch See Detail 08/24/20 Range/Units 13:17 WBC (4.0-11.0) K/uL RBC (4.30-5.90) M/uL Hgb (12.0-16.0) g/dL Hct (36.0-46.0) % MCV (80.0-98.0) fL MCH (27.0-32.0) pg MCHC (31.0-37.0) g/dL RDW Std Deviation (28.0-62.0) fl RDW Coeff of Lex (11.0-15.0) % Plt Count (150-400) K/uL MPV (7.40-12.00) fL Nucleated RBC % /100WBC Nucleated RBCs # K/uL SARS-CoV-2 RNA (DREW) POSITIVE H (NEGATIVE) Blood Type Antibody Screen Crossmatch Med Orders - Current: Current Medications Bisacodyl (Dulcolax) 10 mg RECTAL ONETIME PRN PRN Reason: Constipation Docusate Sodium (Colace) 100 mg PO BID PRN PRN Reason: Constipation Discontinued Medications Butorphanol Tartrate (Stadol) 1 mg IVPUSH Q1H PRN PRN Reason: Pain Carboprost Tromethamine (Hemabate Ds) 250 mcg IM ASDIRECTED PRN PRN Reason: Post Hemorrhage Oxytocin/Sodium Chloride (Oxytocin 30 Unit/500 Ml-Ns) 30 unit in 500 mls @ 999 mls/hr IV TITRATE [facility] Tranexamic Acid 1,000 mg/ (Sodium Chloride) 110 mls @ 660 mls/hr IV ONETIME PRN PRN Reason: Bleeding Lactated Ringer's (Ringers, Lactated) 1,000 mls @ 150 mls/hr IV ASDIRECTED [facility] Lidocaine HCl (Xylocaine 1%) 50 ml INJECT ONETIME PRN PRN Reason: Laceration repair Last Admin: 08/24/20 15:07 Dose: 50 ml Documented by: Methylergonovine Maleate (Methergine) 0.2 mg IM ASDIRECTED PRN PRN Reason: Post Hemorrhage Misoprostol (Cytotec) 200 mcg PO ONETIME PRN PRN Reason: Post Hemorrhage Nalbuphine HCl (Nubain) 10 mg IVPUSH Q1H PRN PRN Reason: Pain (severe 7-10) Sodium Chloride (Saline Flush) 10 ml FLUSH ASDIRECTED PRN PRN Reason: Keep Vein Open Sodium Chloride (Saline Flush) 2.5 ml FLUSH ASDIRECTED PRN PRN Reason: Keep Vein Open Sodium Chloride (Normal Saline) 10 ml IV ASDIRECTED PRN PRN Reason: IV Use Sterile Water (Sterile Water For Irrigation) 1,000 ml IRR ASDIRECTED PRN PRN Reason: delivery - Exam General: Alert, Oriented, Cooperative, No Acute Distress HEENT: Pupils Equal, Pupils Reactive, Mucous Membr. Moist/[place] Neck: Supple Lungs: Clear to Auscultation, Normal Respiratory Effort Cardiovascular: Regular Rate, Regular Rhythm GI/Abdominal Exam: Normal Bowel Sounds, Soft, Non-Tender, No Organomegaly, No Distention (Female) Exam: Normal External Exam, Enlarged Uterus ( uterus, firm U-1), Vaginal Bleeding (Moderate to large vaginal bleeding, one large clot noted. ) Back Exam: Normal Inspection, Full Range of Motion Extremities: Normal Inspection, Normal Range of Motion, Non-Tender, No Pedal Edema, Normal Capillary Refill Skin: Warm, Dry, Intact Wound/Incisions: No Drainage (Labia edematous) Neurological: No New Focal Deficit Psy/Mental Status: Alert, Normal Affect, Normal Mood - Problem List & Annotations (1) (spontaneous vaginal delivery) SNOMED Code(s): 609037264 Code(s): O80 - ENCOUNTER FOR FULL-TERM UNCOMPLICATED DELIVERY Status: Acute Priority: High Current Visit: Yes (2) Rh negative status during SNOMED Code(s): 171217419 Code(s): O26.899 - OTH RELATED CONDITIONS, UNSPECIFIED TRIMESTER; Z67.91 - UNSPECIFIED BLOOD TYPE, RH NEGATIVE Status: Acute Priority: High Current Visit: Yes (3) Lactating mother SNOMED Code(s): 395667796, 477150129 Code(s): Z39.1 - ENCOUNTER FOR CARE AND EXAMINATION OF LACTATING MOTHER Status: Acute Priority: High Current Visit: Yes - Problem List Review Problem List Initiated/Reviewed/Updated: Yes - My Orders Last 24 Hours: My Active Orders 08/24/20 15:28 Patient Status [ADT] Routine May Shower [RC] ASDIRECTED Up ad Geraldine [RC] ASDIRECTED Vital Signs [RC] PER UNIT ROUTINE RHIG WORKUP, [BBK] Routine Acetaminophen [Tylenol Extra Strength] 1,000 mg PO Q4H PRN Acetaminophen [Tylenol Extra Strength] 500 mg PO Q4H PRN Benzocaine/Menthol [Dermoplast Pain Relief 20%-0.5% [place]] 78 gm TOP ASDIRECTED PRN Docusate Sodium [Colace] 100 mg PO BID PRN Ibuprofen [Motrin] 400 mg PO Q4H PRN Ibuprofen [Motrin] 800 mg PO Q6H PRN Lanolin [Lansinoh HPA] See Dose Instructions TOP ASDIRECTED PRN bisacodyL [Dulcolax] 10 mg RECTAL ONETIME PRN oxyCODONE 5 mg PO Q2H PRN witch Renzo [Evertoncks] 1 pad TOP ASDIRECTED PRN Assess Lochia [WOMSER] Per Unit Routine Assess Uterine Involution [WOMSER] Per Unit Routine Ice Therapy [OM.PC] Per Unit Routine Perineal Care [OM.PC] Per Unit Routine Peripheral IV Discontinue [OM.PC] Routine Sitz Bath [OM.PC] Per Unit Routine Resuscitation Status Routine 08/24/20 15:29 Cooling Warming Measures [RC] ASDIRECTED 08/25/20 05:11 HEMOGLOBIN/HEMATOCRIT,HH [HEME] Timed - Plan Plan:: Admit to unit S/P of term, viable, vigorous NBF. 1000 ml LR bolus ordered upon completion of IV pitocin infusion. 0.2 mg methergine IM and urination or I/O catheter advised to be completed now. RN to notify provider if heavy vaginal bleeding persists. CBC + RhIg workup to be completed in am. See new orders. Dr. Garcia notified and agreeable with POC
[2020-08-24] MEDS ORDERED: Morphine 2 MG/ML SYRINGE IVPUSH ONE (17:01)
[2020-08-24] MEDS ORDERED: Morphine 2 MG/ML SYRINGE ONE (17:12)
--- NOTE | 2020-08-25 08:32 | PCM.DCSUM1 ---
Discharge Summary - Hospital Course Free Text/Narrative:: Discharge home with baby. Follow up in the clinic in 6 weeks for routine visit; sooner, if needed. Diagnosis: Stroke: No Modified Max Scale: No Symptoms at All Modified Max Scale Score: 0 - Discharge Data Discharge Date: 08/25/20 Discharge Disposition: Home, Self-Care 01 Condition: Good - Referral to Home Health Primary Care Physician: PCP None - Discharge Diagnosis/Problem(s) (1) (spontaneous vaginal delivery) SNOMED Code(s): 372511032 ICD Code: O80 - ENCOUNTER FOR FULL-TERM UNCOMPLICATED DELIVERY Status: Acute Priority: High Current Visit: Yes - Patient Instructions Diet: Usual Diet as Tolerated, Regular Diet as Tolerated, Drink 8-10+ Glasses/Day Activity: As Tolerated, No Strenuous Activities, Rest and Relax Today Driving: May Drive Today Showering/Bathing: May Shower Notify Provider of: Fever, Increased Pain, Swelling and Redness, Drainage, Nausea and/or Vomiting - Discharge Plan *PRESCRIPTION DRUG MONITORING PROGRAM REVIEWED*: Not Applicable *COPY OF PRESCRIPTION DRUG MONITORING REPORT IN PATIENT RENATE: Not Applicable Prescriptions/Med Rec: Ibuprofen [Motrin] 800 mg PO Q6H PRN #90 tablet PRN Reason: Pain Home Medications: Home Meds Pnv No.95/Ferrous Fum/Folic AC [ Tablet] 1 tab PO DAILY 02/10/18 [History] Metoprolol Succinate [Toprol XL] 25 mg PO DAILY 02/12/20 [History] Ibuprofen [Motrin] 800 mg PO Q6H PRN #90 tablet 08/25/20 [Rx] Oxygen Therapy Mode: Room Air - Discharge Summary/Plan Comment DC Time >30 min.: Yes - General Info Date of Service: 08/25/20 Admission Dx/Problem (Free Text: Patient Status Order with Admit Dx/Problem 08/24/20 13:13 Patient Status [ADT] Routine Admission Diagnosis/Problem Admission Diagnosis/Problem Functional Status: Reports: Pain Controlled, Tolerating Diet, Ambulating, Urinating - Review of Systems General: Reports: No Symptoms HEENT: Reports: No Symptoms Pulmonary: Reports: No Symptoms Cardiovascular: Reports: No Symptoms Gastrointestinal: Reports: No Symptoms Genitourinary: Reports: No Symptoms Musculoskeletal: Reports: No Symptoms Skin: Reports: No Symptoms Neurological: Reports: No Symptoms Psychiatric: Reports: No Symptoms - Patient Data Vitals - Most Recent: Last Vital Signs Temp 98.1 F 08/24/20 22:05 Pulse 68 08/25/20 06:00 Resp 17 08/25/20 06:00 BP 116/65 08/25/20 06:00 Pulse Ox 97 08/25/20 06:00 Weight - Most Recent: 147 lb Lab Results - Last 24 hrs: Laboratory Results - last 24 hr 08/24/20 08/24/20 08/24/20 Range/Units 13:10 13:10 13:10 WBC 12.58 H (4.0-11.0) K/uL RBC 4.80 (4.30-5.90) M/uL Hgb 12.1 (12.0-16.0) g/dL Hct 38.5 (36.0-46.0) % MCV 80.2 (80.0-98.0) fL MCH 25.2 L (27.0-32.0) pg MCHC 31.4 (31.0-37.0) g/dL RDW Std Deviation 41.5 (28.0-62.0) fl RDW Coeff of Lex 14 (11.0-15.0) % Plt Count 278 (150-400) K/uL MPV 9.70 (7.40-12.00) fL Nucleated RBC % 0.0 /100WBC Nucleated RBCs # 0 K/uL SARS-CoV-2 RNA (DREW) (NEGATIVE) Blood Type B NEGATIVE Antibody Screen NEGATIVE Crossmatch See Detail 08/24/20 08/25/20 Range/Units 13:17 05:54 WBC (4.0-11.0) K/uL RBC (4.30-5.90) M/uL Hgb 9.2 L (12.0-16.0) g/dL Hct 28.9 L (36.0-46.0) % MCV (80.0-98.0) fL MCH (27.0-32.0) pg MCHC (31.0-37.0) g/dL RDW Std Deviation (28.0-62.0) fl RDW Coeff of Lex (11.0-15.0) % Plt Count (150-400) K/uL MPV (7.40-12.00) fL Nucleated RBC % /100WBC Nucleated RBCs # K/uL SARS-CoV-2 RNA (DREW) POSITIVE H (NEGATIVE) Blood Type Antibody Screen Crossmatch Med Orders - Current: Current Medications Acetaminophen (Tylenol Extra Strength) 500 mg PO Q4H PRN PRN Reason: Pain Acetaminophen (Tylenol Extra Strength) 1,000 mg PO Q4H PRN PRN Reason: Pain Benzocaine/Menthol (Dermoplast Pain Relief 20%-0.5% [place]) 78 gm TOP ASDIRECTED PRN PRN Reason: Perineal Comfort Measure Last Admin: 08/24/20 22:04 Dose: 1 can Documented by: Bisacodyl (Dulcolax) 10 mg RECTAL ONETIME PRN PRN Reason: Constipation Docusate Sodium (Colace) 100 mg PO BID PRN PRN Reason: Constipation Emollient Ointment (Lansinoh Hpa) 0 gm TOP ASDIRECTED PRN PRN Reason: Sore Nipples Ibuprofen (Motrin) 400 mg PO Q4H PRN PRN Reason: Pain Ibuprofen (Motrin) 800 mg PO Q6H PRN PRN Reason: Pain Oxycodone HCl (Oxycodone) 5 mg PO Q2H PRN PRN Reason: Pain Witch Cate (Tucks) 1 pad TOP ASDIRECTED PRN PRN Reason: comfort care Last Admin: 08/24/20 22:04 Dose: 1 tub Documented by: Discontinued Medications Butorphanol Tartrate (Stadol) 1 mg IVPUSH Q1H PRN PRN Reason: Pain Carboprost Tromethamine (Hemabate Ds) 250 mcg IM ASDIRECTED PRN PRN Reason: Post Hemorrhage Oxytocin/Sodium Chloride (Oxytocin 30 Unit/500 Ml-Ns) 30 unit in 500 mls @ 999 mls/hr IV TITRATE ALISON Tranexamic Acid 1,000 mg/ (Sodium Chloride) 110 mls @ 660 mls/hr IV ONETIME PRN PRN Reason: Bleeding Lactated Ringer's (Ringers, Lactated) 1,000 mls @ 150 mls/hr IV ASDIRECTED ALISON Last Admin: 08/24/20 16:35 Dose: 150 mls/hr Documented by: Lidocaine HCl (Xylocaine 1%) 50 ml INJECT ONETIME PRN PRN Reason: Laceration repair Last Admin: 08/24/20 15:07 Dose: 50 ml Documented by: Methylergonovine Maleate (Methergine) 0.2 mg IM ASDIRECTED PRN PRN Reason: Post Hemorrhage Last Admin: 08/24/20 15:37 Dose: 0.2 mg Documented by: Methylergonovine Maleate (Methergine) Confirm Administered Dose 0.2 mg .ROUTE .STK-MED ONE Stop: 08/24/20 15:35 Last Admin: 08/24/20 21:19 Dose: Not Given Documented by: Misoprostol (Cytotec) 200 mcg PO ONETIME PRN PRN Reason: Post Hemorrhage Morphine Sulfate (Morphine) 1 mg IVPUSH ONETIME ONE Stop: 08/24/20 17:02 Last Admin: 08/24/20 17:55 Dose: 1 mg Documented by: Morphine Sulfate (Morphine) Confirm Administered Dose 2 mg .ROUTE .STK-MED ONE Stop: 08/24/20 17:13 Last Admin: 08/24/20 21:19 Dose: Not Given Documented by: Nalbuphine HCl (Nubain) 10 mg IVPUSH Q1H PRN PRN Reason: Pain (severe 7-10) Sodium Chloride (Saline Flush) 10 ml FLUSH ASDIRECTED PRN PRN Reason: Keep Vein Open Sodium Chloride (Saline Flush) 2.5 ml FLUSH ASDIRECTED PRN PRN Reason: Keep Vein Open Sodium Chloride (Normal Saline) 10 ml IV ASDIRECTED PRN PRN Reason: IV Use Sterile Water (Sterile Water For Irrigation) 1,000 ml IRR ASDIRECTED PRN PRN Reason: delivery - Exam General: Reports: Alert, Oriented, Cooperative, No Acute Distress Lungs: Reports: Normal Respiratory Effort Cardiovascular: Reports: Regular Rate, Regular Rhythm GI/Abdominal Exam: Soft, Non-Tender (Female) Exam: Deferred Rectal (Female) Exam: Deferred Back Exam: Reports: Normal Inspection, Full Range of Motion Extremities: Normal Inspection, Normal Range of Motion, Non-Tender, Normal Capillary Refill Skin: Reports: Warm, Dry, Intact Neurological: Reports: No New Focal Deficit Psy/Mental Status: Reports: Alert, Normal Affect, Normal Mood
[2020-08-25 11:23] VITALS: BP 116/66; PULSE 79
== END 2020-08-25 17:08 | disposition home or self-care (01) | DRG 805 ==
LOC: MW.OBCHECK 12:30 → MW.OB 12:41 → MW.OBCHECK 14:37 → OBSVTOIN 15:28 → MW.OB 22:30
PROVIDERS: ADMIT Obstetrics & Gynecology; ATTEND Obstetrics & Gynecology
PROC: 10E0XZZ Delivery of Products of Conception, External Approach (ICD-10-PCS; principal; 2020-08-24)
PROC: 0HQ9XZZ Repair Perineum Skin, External Approach (ICD-10-PCS; 2020-08-24)
PROC: 0UQMXZZ Repair Vulva, External Approach (ICD-10-PCS; 2020-08-24)
DX: O99.284 Endocrine, nutritional and metabolic diseases complicating childbirth (principal); U07.1 COVID-19; Z37.0 Single live birth; O98.52 Other viral diseases complicating childbirth; E03.9 Hypothyroidism, unspecified; Z3A.40 40 weeks gestation of pregnancy; O70.0 First degree perineal laceration during delivery
CPT/HCPCS: 36415; 59025; 59409; 85014; 85018; 85027; 86592; 86850; 86900; 86901; 86902; 86920; 86921; 86922; A9270-GY; J2001; J2210; J2270; J7120; U0002

== ENCOUNTER 2020-09-25 10:37 | Emergency (ER) | payer BC, OTHER ==
--- NOTE | 2020-09-25 10:49 | EDM.PDOC ---
ED HPI GENERAL MEDICAL PROBLEM - General Chief Complaint: Chest Pain Stated Complaint: CHEST PAIN Time Seen by Provider: 09/25/20 10:42 Source of Information: Reports: Patient History Limitations: Reports: No Limitations - History of Present Illness INITIAL COMMENTS - FREE TEXT/NARRATIVE: Patient is a 25-year-old female who is 1 month presents today for chest pain for the past 3 weeks. Patient also reports has been feeling anxious and jittery as well. Patient states that today she felt lightheaded she feels in a pass out. Patient advised how she was iron deficient anemia. Patient denies any vaginal bleeding fevers chills nausea vomiting. The chest pain is for the past 3 weeks is constant not be better not made worse and does not radiate. Patient denies any lower extremity swelling. chest Pain Score (Numeric/FACES): 5 - Related Data Allergies Allergy/AdvReac Type Severity Reaction Status Date / Time No Known Allergies Allergy Verified 09/25/20 10:46 Home Meds: Home Meds Metoprolol Succinate [Toprol XL] 25 mg PO DAILY 02/12/20 [History] Past Medical History HEENT History: Reports: None Cardiovascular History: Reports: Other (See Below) Other Cardiovascular History: Palpitations Respiratory History: Reports: None Gastrointestinal History: Reports: None Genitourinary History: Reports: None BUTTER WRAPPER History: Reports: Musculoskeletal History: Reports: None Neurological History: Reports: None Psychiatric History: Reports: None Endocrine/Metabolic History: Reports: Hyperthyroidism, Hypothyroidism Insulin Pump Model and Plant Electrician: None Hematologic History: Reports: None Immunologic History: Reports: None Oncologic (Cancer) History: Reports: None Dermatologic History: Reports: None - Infectious Disease History Infectious Disease History: Reports: None - Past Surgical History Head Surgeries/Procedures: Reports: None HEENT Surgical History: Reports: Oral Surgery Female Surgical History: Reports: None Social & Family History - Family History Family Medical History: No Pertinent Family History - Caffeine Use Caffeine Use: Reports: None ED ROS GENERAL - Review of Systems Review Of Systems: See Below Constitutional: Reports: No Symptoms HEENT: Reports: No Symptoms Respiratory: Reports: No Symptoms Cardiovascular: Reports: Chest Pain Endocrine: Reports: No Symptoms GI/Abdominal: Reports: No Symptoms : Reports: No Symptoms Musculoskeletal: Reports: No Symptoms Skin: Reports: No Symptoms Neurological: Reports: No Symptoms Psychiatric: Reports: No Symptoms Hematologic/Lymphatic: Reports: No Symptoms Immunologic: Reports: No Symptoms ED EXAM, GENERAL - Physical Exam Exam: See Below Exam Limited By: No Limitations General Appearance: Alert, WD/WN Eye Exam: Bilateral Eye: EOMI, PERRL Respiratory/Chest: No Respiratory Distress, Lungs Clear, Normal Breath Sounds Cardiovascular: Normal Peripheral Pulses, Regular Rate, Rhythm GI/Abdominal: Normal Bowel Sounds, Soft, Non-Tender Extremities: Normal Inspection, Normal Range of Motion Neurological: Alert, Oriented, CN II-XII Intact, Normal Cognition, Normal Gait #1 Interpretation EKG Date: 09/25/20 Time: 10:40 Rhythm: NSR Rate (Beats/Min): 99 ST-T: Normal Course - Vital Signs Last Recorded V/S: Last Vital Signs Temp Pulse 104 H 09/25/20 10:44 Resp 16 09/25/20 10:44 BP 146/81 H 09/25/20 10:44 Pulse Ox 99 09/25/20 10:44 - Orders/Labs/Meds Orders: Active Orders 24 hr Category Date Time Status EKG 12 Lead [EKG Documentation Completion] [RC] STAT Care 09/25/20 10:38 Active Labs: Laboratory Tests 09/25/20 09/25/20 09/25/20 Range/Units 10:45 10:45 10:45 WBC 9.18 (4.0-11.0) K/uL RBC 5.14 (4.30-5.90) M/uL Hgb 12.7 (12.0-16.0) g/dL Hct 41.1 (36.0-46.0) % MCV 80.0 (80.0-98.0) fL MCH 24.7 L (27.0-32.0) pg MCHC 30.9 L (31.0-37.0) g/dL RDW Std Deviation 43.6 (28.0-62.0) fl RDW Coeff of Lex 15 (11.0-15.0) % Plt Count 398 (150-400) K/uL MPV 9.10 (7.40-12.00) fL Neut % (Auto) 59.0 (48.0-80.0) % Lymph % (Auto) 29.6 (16.0-40.0) % [place] % (Auto) 9.5 (0.0-15.0) % Eos % (Auto) 1.6 (0.0-7.0) % Baso % (Auto) 0.3 (0.0-1.5) % Neut # (Auto) 5.4 (1.4-5.7) K/uL Lymph # (Auto) 2.7 H (0.6-2.4) K/uL [place] # (Auto) 0.9 H (0.0-0.8) K/uL Eos # (Auto) 0.2 (0.0-0.7) K/uL Baso # (Auto) 0.0 (0.0-0.1) K/uL Nucleated RBC % 0.0 /100WBC Nucleated RBCs # 0 K/uL D-Dimer, Quantitative 0.64 H (0.0-0.50) mg/L FEU Sodium 139 (136-145) mmol/L Potassium 3.5 (3.5-5.1) mmol/L Chloride 104 (98-107) mmol/L Carbon Dioxide 24.6 (21.0-32.0) mmol/L BUN 11 (7.0-18.0) mg/dL Creatinine 0.8 (0.6-1.0) mg/dL Est Cr Clr Drug Dosing 98.88 mL/min Estimated GFR (MDRD) > 60.0 ml/min Glucose 112 H (74-106) mg/dL Calcium 9.0 (8.5-10.1) mg/dL Creatine Kinase 49 (26-308) U/L Troponin I < 0.050 (0.000-0.056) ng/mL Meds: Medications Discontinued Medications Generic Name Dose Route Start Last Admin Trade Name Freq PRN Reason Stop Dose Admin Iopamidol 100 ml 09/25/20 12:11 09/25/20 12:11 Isovue Multipack-370 (76%) IVPUSH 09/25/20 12:12 100 ml ONETIME ONE Administration - Re-Assessments/Exams Free Text/Narrative Re-Assessment/Exam: 09/25/20 12:[address] PE is negative patient has follow-up for echo as outpatient. Will discharge and give patient strict return precautions. Departure - Departure Time of Disposition: 12:43 Disposition: Home, Self-Care 01 Condition: Good Clinical Impression: Chest pain - Discharge Information *PRESCRIPTION DRUG MONITORING PROGRAM REVIEWED*: Not Applicable *COPY OF PRESCRIPTION DRUG MONITORING REPORT IN PATIENT RENATE: Not Applicable Instructions: Nonspecific Chest Pain, Adult Forms: ED Department Discharge Additional Instructions: The following information is given to patients seen in the emergency department who are being discharged to home. This information is to outline your options for follow-up care. We provide all patients seen in our emergency department with a follow-up referral. The need for follow-up, as well as the timing and circumstances, are variable depending upon the specifics of your emergency department visit. If you don't have a primary care physician on staff, we will provide you with a referral. We always advise you to contact your personal physician following an emergency department visit to inform them of the circumstance of the visit and for follow-up with them and/or the need for any referrals to a consulting specialist. The emergency department will also refer you to a specialist when appropriate. This referral assures that you have the opportunity for follow-up care with a specialist. All of these measure are taken in an effort to provide you with optimal care, which includes your follow-up. Under all circumstances we always encourage you to contact your private physician who remains a resource for coordinating your care. When calling for follow-up care, please make the office aware that this follow-up is from your recent emergency room visit. If for any reason you are refused follow-up, please contact the [facility] Emergency Department at and asked to speak to the emergency department charge nurse. Please follow up with your primary care physician. If you do not have a primary care physician, see below: [facility] [address] [place] [id number] [facility] [address] [place] [id number] Follow-up with your primary care physician and continue to see BUTTER WRAPPER as needed. Please continue to go to your schedule echocardiogram. If you have any worsening chest pain shortness of breath or symptoms please return to the emergency department. Sepsis Event Note (ED) - Evaluation Sepsis Screening Result: No Definite Risk - Focused Exam Vital Signs: Vital Signs Pulse Resp BP Pulse Ox 09/25/20 10:44 104 H 16 146/81 H 99 - My Orders Last 24 Hours: My Active Orders 09/25/20 10:38 EKG 12 Lead [EKG Documentation Completion] [RC] STAT - Assessment/Plan Last 24 Hours: My Active Orders 09/25/20 10:38 EKG 12 Lead [EKG Documentation Completion] [RC] STAT Assessment:: She is a 25-year-old female who presents today for chest pain and feeling lightheaded. Patient's had this chest pain for the past 3 weeks does not seem cardiac. Will obtain labs EKG and D-dimer rule out PE.
[2020-09-25 11:29] LABS: BLOOD UREA NITROGEN,BUN 11 mg/dL (7.0-18.0); CARBON DIOXIDE,CO2 24.6 mmol/L (21.0-32.0); CHLORIDE,CL 104 mmol/L (98-107); GLUCOSE RANDOM 112 mg/dL (74-106); POTASSIUM,K 3.5 mmol/L (3.5-5.1); SODIUM,NA 139 mmol/L (136-145)
[2020-09-25] MEDS ORDERED: Iopamidol 755 MG/ML 500 ML Multipack Bottle IVPUSH ONE (12:11)
--- NOTE | 2020-09-25 12:38 | CT ---
INDICATION: Tachycardia. Recent . Increasingly worse with chest pain for last week and a half. COMPARISON: None TECHNIQUE: : CT examination of the chest was performed with the uneventful intravenous administration of 100 cc of Isovue 370 while thin axial sections were obtained from above the apices of the lungs to the lung bases. Please note that all CT scans at this facility use dose modulation, iterative reconstruction, and/or weight-based dosing when appropriate to reduce radiation dose to as low as reasonably achievable. FINDINGS: : HEART and MEDIASTINUM: The heart size is normal. There is no mediastinal or hilar adenopathy or mass. There is no pericardial effusion. PULMONARY ARTERIAL CIRCULATION: Limited evaluation due to respiratory motion artifact especially in the left midlung and left base. However, within the limitations of the study, there is no visible pulmonary embolus. LUNGS: The lungs show no focal consolidation or mass. The airways appear normal. PLEURAL SPACES: There is no pleural effusion, pneumothorax or pleural based mass. VISUALIZED UPPER ABDOMEN: The limited visualized upper abdominal structures appear normal. OSSEOUS STRUCTURES: Age-appropriate appearance. No acute fracture or destructive process. TUBES and LINES: None. IMPRESSION: 1. Somewhat limited by respiratory motion artifact but there is no finding pulmonary embolus and there is no finding of aortic dissection. 2. The lungs and pleural spaces appear normal. Please note that all CT scans at this facility use dose modulation, iterative reconstruction, and/or weight-based dosing when appropriate to reduce radiation dose to as low as reasonably achievable. Dictated by Jignesh Gonzalez MD @ Sep 25 2020 12:32PM Signed by Dr. Jignesh Gonzalez @ Sep 25 2020 12:37PM
[2020-09-25 13:13] VITALS: BP 125/68; PULSE 86
== END 2020-09-25 12:55 | disposition home or self-care (01) ==
LOC: MW.ED 10:37
DX: O99.893 Other specified diseases and conditions complicating puerperium (principal); R07.9 Chest pain, unspecified; R42 Dizziness and giddiness
CPT/HCPCS: 71275; 80048; 82550; 84484; 85025; 85379; 93005; 99284; Q9967; 93010; 99283

== ENCOUNTER 2021-01-08 09:26 | Emergency (ER) | payer BC ==
[2021-01-08] MEDS ORDERED: Sodium Chloride 0.9% 10 ML Syringe FLUSH PRN (09:53)
[2021-01-08] MEDS ORDERED: Sodium Chloride 0.9% 2.5 ML Syringe FLUSH PRN (09:53)
--- NOTE | 2021-01-08 09:58 | EDM.PDOC ---
ED HPI GENERAL MEDICAL PROBLEM - General Chief Complaint: Respiratory Problem Stated Complaint: COUGHING Time Seen by Provider: 01/08/21 09:45 - History of Present Illness INITIAL COMMENTS - FREE TEXT/NARRATIVE: 25-year-old female history of anxiety no other active medical problems who is presenting with hemoptysis. Patient states that for the last 3 weeks she has had an silk trimmer and late evening cough that has been fairly productive. She normally is fine throughout the day however. There is no shortness of breath. This morning patient had some blood streaks mixed with the sputum. Patient has had approximately a year of sharp left-sided chest pain. She has been seen by etcher machine for this and had evaluations and has been told that nothing is wrong. She also describes a history of prominent veins throughout her body and veins that seem to enlarge and discolor with dependency. She had significant dependent discoloration last night in the shower. Her primary care doctor is trying to arrange for her to see a vascular provider. This has been an issue for years. There is no new chest pain no new shortness of breath. No syncope or near syncope associated with this complaint. No clear exacerbating or alleviating factors. Chest Pain Score (Numeric/FACES): 3 - Related Data Allergies Allergy/AdvReac Type Severity Reaction Status Date / Time No Known Allergies Allergy Verified 01/08/21 09:40 Home Meds: Home Meds . [No Known Home Meds] 01/08/21 [History] Past Medical History HEENT History: Reports: None Cardiovascular History: Reports: Other (See Below) Other Cardiovascular History: Palpitations Respiratory History: Reports: None Gastrointestinal History: Reports: None Genitourinary History: Reports: None ADVANCED SEAL DELIVERY SYSTEM History: Reports: Musculoskeletal History: Reports: None Neurological History: Reports: None Psychiatric History: Reports: None Endocrine/Metabolic History: Reports: Hyperthyroidism, Hypothyroidism Insulin Pump Model and Playroom Attendant: None Hematologic History: Reports: Anemia Immunologic History: Reports: None Oncologic (Cancer) History: Reports: None Dermatologic History: Reports: None - Infectious Disease History Infectious Disease History: Reports: Chicken Pox, Novel Coronavirus - Past Surgical History Head Surgeries/Procedures: Reports: None HEENT Surgical History: Reports: Oral Surgery Female Surgical History: Reports: None Social & Family History - Family History Family Medical History: No Pertinent Family History - Tobacco Use Tobacco Use Status *Q: Never Tobacco User - Caffeine Use Caffeine Use: Reports: None - Recreational Drug Use Recreational Drug Use: No ED ROS GENERAL - Review of Systems Review Of Systems: See Below Free Text/Narrative/Comment: General: No fever. Skin: No rash. Eyes: No vision problems. ENT: Minimal nasal congestion and rhinorrhea on and off for the last few weeks. Neck: No neck stiffness. Respiratory: Per HPI Cardiac: No chest pain. Gastrointestinal: No nausea, vomiting or abdominal pain. Urinary: No dysuria. Musculoskeletal: No myalgias/arthralgias. Neurologic: No headache. ED EXAM, GENERAL - Physical Exam Exam: See Below Free Text/Narrative:: General Appearance: No acute distress, appears comfortable Skin: No rash HEENT: Normocephalic/atraumatic, sclera anicteric, mucous membranes moist Neck: Normal range of motion Chest and Lungs: Bilateral breath sounds, clear to auscultation Cardiovascular: Regular rate and rhythm, no murmur Abdomen: Soft, non-tender Back: Normal Musculoskeletal: No edema or tenderness, intact bilateral radial pulses no extremity discoloration at this time Neurologic: Awake, alert, no obvious deficits, moving all extremities Psychiatric: Appropriate, cooperative #1 Interpretation EKG Date: 01/08/21 Time: 09:50 EKG Interpretation Comments: Normal sinus rhythm rate of 98 some nonspecific lateral and inferior T wave flattening but no acute ischemia no ST elevations normal intervals Course - Vital Signs Last Recorded V/S: Last Vital Signs Temp 97.7 F 01/08/21 09:40 Pulse 93 01/08/21 11:02 Resp 15 01/08/21 11:02 BP 144/73 H 01/08/21 11:02 Pulse Ox 98 01/08/21 11:02 - Orders/Labs/Meds Orders: Active Orders 24 hr Category Date Time Status Sodium Chloride 0.9% [Saline Flush] Med 01/08/21 09:53 Active 10 ml FLUSH ASDIRECTED PRN Sodium Chloride 0.9% [Saline Flush] Med 01/08/21 09:53 Active 2.5 ml FLUSH ASDIRECTED PRN Saline Lock Insert [OM.PC] Stat Oth 01/08/21 09:53 Ordered Medication Orders Sodium Chloride (Sodium Chloride 0.9% 10 Ml Syringe) 10 ml FLUSH ASDIRECTED PRN PRN Reason: Keep Vein Open Last Admin: 01/08/21 11:03 Dose: 10 ml Documented by: ROXANNA Sodium Chloride (Sodium Chloride 0.9% 2.5 Ml Syringe) 2.5 ml FLUSH ASDIRECTED PRN PRN Reason: Keep Vein Open Last Admin: 01/08/21 11:03 Dose: 2.5 ml Documented by: ROXANNA Labs: Laboratory Tests 01/08/21 01/08/21 01/08/21 Range/Units 10:43 10:43 10:43 WBC 6.37 (4.0-11.0) K/uL RBC 5.25 (4.30-5.90) M/uL Hgb 15.2 (12.0-16.0) g/dL Hct 44.3 (36.0-46.0) % MCV 84.4 (80.0-98.0) fL MCH 29.0 (27.0-32.0) pg MCHC 34.3 (31.0-37.0) g/dL RDW Std Deviation 45.0 (28.0-62.0) fl RDW Coeff of Lex 15 (11.0-15.0) % Plt Count 281 (150-400) K/uL MPV 9.20 (7.40-12.00) fL Neut % (Auto) 64.6 (48.0-80.0) % Lymph % (Auto) 22.3 (16.0-40.0) % [place] % (Auto) 10.2 (0.0-15.0) % Eos % (Auto) 2.4 (0.0-7.0) % Baso % (Auto) 0.5 (0.0-1.5) % Neut # (Auto) 4.1 (1.4-5.7) K/uL Lymph # (Auto) 1.4 (0.6-2.4) K/uL [place] # (Auto) 0.7 (0.0-0.8) K/uL Eos # (Auto) 0.2 (0.0-0.7) K/uL Baso # (Auto) 0.0 (0.0-0.1) K/uL Nucleated RBC % 0.0 /100WBC Nucleated RBCs # 0 K/uL D-Dimer, Quantitative 0.26 (0.0-0.50) mg/L FEU Sodium 143 (136-145) mmol/L Potassium 3.9 (3.5-5.1) mmol/L Chloride 107 (98-107) mmol/L Carbon Dioxide 25.7 (21.0-32.0) mmol/L BUN 12 (7.0-18.0) mg/dL Creatinine 0.8 (0.6-1.0) mg/dL Est Cr Clr Drug Dosing 98.88 mL/min Estimated GFR (MDRD) > 60.0 ml/min Glucose 101 (74-106) mg/dL Calcium 8.7 (8.5-10.1) mg/dL Total Bilirubin 0.4 (0.2-1.0) mg/dL AST 13 L (15-37) IU/L ALT 15 (14-63) IU/L Alkaline Phosphatase 103 (46-116) U/L Troponin I < 0.050 (0.000-0.056) ng/mL Total Protein 7.4 (6.4-8.2) g/dL Albumin 4.1 (3.4-5.0) g/dL Globulin 3.3 (2.6-4.0) g/dL Albumin/Globulin Ratio 1.2 (0.9-1.6) Meds: Medications Generic Name Dose Route Start Last Admin Trade Name Freq PRN Reason Stop Dose Admin Sodium Chloride 10 ml 01/08/21 09:53 01/08/21 11:03 Sodium Chloride 0.9% 10 Ml Syringe FLUSH 10 ml ASDIRECTED PRN Administration Keep Vein Open Sodium Chloride 2.5 ml 01/08/21 09:53 01/08/21 11:03 Sodium Chloride 0.9% 2.5 Ml Syringe FLUSH 2.5 ml ASDIRECTED PRN Administration Keep Vein Open Departure - Departure Time of Disposition: 11:30 Disposition: Home, Self-Care 01 Condition: Good Clinical Impression: Cough - Discharge Information *PRESCRIPTION DRUG MONITORING PROGRAM REVIEWED*: Not Applicable *COPY OF PRESCRIPTION DRUG MONITORING REPORT IN PATIENT RENATE: Not Applicable Instructions: Cough, Adult Referrals: Alyce Castle NP [Primary Care Provider] - Forms: ED Department Discharge Additional Instructions: Your chest x-ray and blood work today was normal there is no suggestion of pneumonia or blood clot. The bloody streaks in your sputum today are likely due to irritation of some of your larger airways. Is very unlikely to represent a serious medical process. I encourage you to continue following up with your primary care doctor. If your symptoms worsen you develop any other new symptoms that concern you please call your doctor right away or return to the ER. The following information is given to patients seen in the emergency department who are being discharged to home. This information is to outline your options for follow-up care. We provide all patients seen in our emergency department with a follow-up referral. The need for follow-up, as well as the timing and circumstances, are variable depending upon the specifics of your emergency department visit. If you don't have a primary care physician on staff, we will provide you with a referral. We always advise you to contact your personal physician following an emergency department visit to inform them of the circumstance of the visit and for follow-up with them and/or the need for any referrals to a consulting specialist. The emergency department will also refer you to a specialist when appropriate. This referral assures that you have the opportunity for follow-up care with a specialist. All of these measure are taken in an effort to provide you with optimal care, which includes your follow-up. Under all circumstances we always encourage you to contact your private physician who remains a resource for coordinating your care. When calling for follow-up care, please make the office aware that this follow-up is from your recent emergency room visit. If for any reason you are refused follow-up, please contact the [facility] Emergency Department at and asked to speak to the emergency department charge nurse. Sepsis Event Note (ED) - Evaluation Sepsis Screening Result: No Definite Risk - Focused Exam Vital Signs: Vital Signs Temp Pulse Resp BP Pulse Ox 01/08/21 11:02 93 15 144/73 H 98 01/08/21 09:40 97.7 F 100 16 135/85 98 - My Orders Last 24 Hours: My Active Orders 01/08/21 09:53 Sodium Chloride 0.9% [Saline Flush] 10 ml FLUSH ASDIRECTED PRN Sodium Chloride 0.9% [Saline Flush] 2.5 ml FLUSH ASDIRECTED PRN Saline Lock Insert [OM.PC] Stat - Assessment/Plan Last 24 Hours: My Active Orders 01/08/21 09:53 Sodium Chloride 0.9% [Saline Flush] 10 ml FLUSH ASDIRECTED PRN Sodium Chloride 0.9% [Saline Flush] 2.5 ml FLUSH ASDIRECTED PRN Saline Lock Insert [OM.PC] Stat Assessment:: 25-year-old female presenting with cough and with scant hemoptysis with background of morning coughing over the last few weeks. Allergy is certainly a consideration the patient denies any smoke exposure denies any marijuana or tobacco use. Her chest pain is chronic and has been extensively evaluated. Given the new hemoptysis PE should be considered pneumonia possible vital signs are good. Work of breathing is normal. CBC CMP single troponin and D-dimer ordered as well as chest x-ray to further assess if this is unremarkable patient felt safe for discharge with ongoing primary care follow-up. 1130: Pt's labs are normal, d dimer negative, CXR normal as well. Given this suspect small volume hemoptysis 2/2 airway irritation. VS are normal, work of breathing is normal and patient feels well at this time. Will dc with con't f/u. Return precautions discussed and understood.
--- NOTE | 2021-01-08 10:43 | CR ---
HISTORY: Cough. TECHNIQUE: Two views of the chest. COMPARISON: 09/25/2020. FINDINGS: No acute lung infiltrate or pulmonary edema. No pneumothorax or pleural effusion. Cardiac size and pulmonary vasculature are within normal limits. No acute bony abnormality. IMPRESSION: No acute disease. Dictated by George Delacruz MD @ Jan 08 2021 10:40AM Signed by Dr. George Delacruz @ Jan 08 2021 10:41AM
[2021-01-08 11:15] LABS: BLOOD UREA NITROGEN,BUN 12 mg/dL (7.0-18.0); CARBON DIOXIDE,CO2 25.7 mmol/L (21.0-32.0); CHLORIDE,CL 107 mmol/L (98-107); GLUCOSE RANDOM 101 mg/dL (74-106); POTASSIUM,K 3.9 mmol/L (3.5-5.1); SODIUM,NA 143 mmol/L (136-145)
[2021-01-08 19:18] VITALS: BP 138/70; PULSE 96
== END 2021-01-08 11:44 | disposition home or self-care (01) ==
LOC: MW.ED 09:26
DX: R05 Cough (principal); Z86.16 Personal history of COVID-19
CPT/HCPCS: 36415; 71046; 71046-26; 80053; 84484; 85025; 85379; 93005; 93010; 99283; 99284-25

== ENCOUNTER 2025-02-13 10:51 | Inpatient (IN) | payer BC ==
[2025-02-13 11:23] LABS: APPEARANCE,URINE CLEAR; BILIRUBIN,URINE NEGATIVE (NEGATIVE); COLOR,URINE YELLOW; GLUCOSE,URINE NEGATIVE (NEGATIVE); KETONES,URINE 15 mg/dL (NEGATIVE); LEUKOCYTE ESTERASE,URINE NEGATIVE (NEGATIVE); NITRITE,URINE NEGATIVE (NEGATIVE); OCCULT BLOOD,URINE LARGE (NEGATIVE); PH,URINE 6.5 (5.0-8.0); PROTEIN,URINE NEGATIVE (NEGATIVE); UROBILINOGEN,URINE 0.2 EU/dL (<2.0)
[2025-02-13] MEDS ORDERED: Sodium Chloride 0.9% 2.5 ML Syringe FLUSH PRN (11:35)
[2025-02-13] MEDS ORDERED: Ondansetron 4 MG/2 ML SDV IVPUSH PRN (11:35)
[2025-02-13] MEDS ORDERED: Carboprost Tromethamine 250 MCG/1 mL Vial IM PRN (11:35)
[2025-02-13] MEDS ORDERED: Methylergonovine 0.2 MG/1 ML Amp IM PRN (11:35)
[2025-02-13] MEDS ORDERED: Sodium Chloride 0.9% 20 ML SDV IV PRN (11:35)
[2025-02-13] MEDS ORDERED: Water For Irrigation,Sterile 1,000 ML Container IRR PRN (11:35)
[2025-02-13] MEDS ORDERED: Misoprostol 200 MCG Tab PO PRN (11:35)
[2025-02-13] MEDS ORDERED: Butorphanol 1 MG/ML SDV IVPUSH PRN (11:35)
[2025-02-13] MEDS ORDERED: Sodium Chloride 0.9% 10 ML Syringe FLUSH PRN (11:35)
[2025-02-13 12:46] LABS: HEMATOCRIT 35.4 % (37.0-47.0); HEMOGLOBIN 12.1 g/dL (12.0-16.0); MEAN CORPUSCULAR HEMOGLOBIN 26.3 pg (28.0-32.0); MEAN CORPUSCULAR HGB CONC 34.2 g/dL (32.0-36.0); MEAN PLATELET VOLUME 9.8 fL (9.4-12.3); PLATELET COUNT,PLT 286 K/uL (150-400); WHITE BLOOD CELL COUNT,WBC 16.26 K/uL (3.9-11.3)
[2025-02-13] MEDS: Oxytocin/0.9 % Sodium Chloride 30 UNIT/500 ML BAG IV SCH (15:59)
[2025-02-13] MEDS: Lidocaine 1% 50 ML MDV INJECT PRN (16:05)
[2025-02-13] MEDS: Tranexamic Acid in NACL,ISO-OS 1,000 MG in Premix Bag 1 BAG IV ONE (16:10)
[2025-02-13] MEDS: Lactated Ringers 1,000 ML IV SCH (16:25)
[2025-02-13] MEDS ORDERED: Docusate Sodium 100 MG Cap PO PRN (16:39)
[2025-02-13] MEDS ORDERED: Simethicone 80 MG Tab.Chew PO PRN (16:39)
[2025-02-13] MEDS ORDERED: Aluminum Hydroxide/Magnesium Hydroxide/Simethicone Susp 30 ML Cup PO PRN (16:39)
[2025-02-13 16:45] LABS: PH,UMBILICAL ARTERIAL 7.29 (7.18-7.38)
[2025-02-13 16:46] LABS: PH,UMBILICAL VENOUS 7.41 (7.25-7.45)
[2025-02-13] MEDS: Witch Hazel Medicated Pads 40/Jar TOP PRN (16:56)
[2025-02-13] MEDS: Benzocaine/Menthol 20%-0.5% Spray 78 GM Cannister TOP PRN (16:56)
[2025-02-13] MEDS: Lanolin 100% Cream 7 GM Tube TOP PRN (16:57)
[2025-02-13] MEDS: Acetaminophen 500 MG Tab PO PRN (16:57)
[2025-02-14 06:19] LABS: HEMATOCRIT 31.2 % (37.0-47.0); HEMOGLOBIN 10.3 g/dL (12.0-16.0); MEAN CORPUSCULAR VOLUME 78.8 fL (83.0-99.0); MEAN PLATELET VOLUME 9.4 fL (9.4-12.3); PLATELET COUNT,PLT 245 K/uL (150-400); RED BLOOD CELL COUNT 3.96 M/uL (4.10-5.30); WHITE BLOOD CELL COUNT,WBC 15.18 K/uL (3.9-11.3)
[2025-02-14 06:46] LABS: BASOPHILS ABSOLUTE MAN 0.15 K/uL (0.00-0.20); BASOPHILS PERCENT MAN 1 % (0-1); LYMPHOCYTES ABSOLUTE MAN 3.34 K/uL (1.00-4.80); LYMPHOCYTES PERCENT MAN 22 % (24-44); MONOCYTES ABSOLUTE MAN 1.52 K/uL (0.00-0.80); MONOCYTES PERCENT MAN 10 % (0-8); SEG NEUTROPHILS ABSOLUTE MAN 10.17 K/uL (1.80-7.70); SEG NEUTROPHILS PERCENT MAN 67 % (41-71)
[2025-02-14] MEDS: Ibuprofen 800 MG Tab PO PRN (07:54)
[2025-02-14] MEDS ORDERED: NIFEdipine 30 MG Tab.ER PO SCH ×2 (12:00→12:15)
[2025-02-14 17:09] VITALS: BP 115/70; PULSE 68
== END 2025-02-14 18:31 | disposition home or self-care (01) | DRG 560 ==
LOC: MW.OBCHECK 10:51 → MW.OB 11:35 → OBSVTOIN 15:57 → MW.OB 18:02
PROVIDERS: ADMIT Obstetrics & Gynecology; ATTEND Obstetrics & Gynecology
PROC: 10E0XZZ Delivery of Products of Conception, External Approach (ICD-10-PCS; principal; 2025-02-13)
PROC: 0HQ9XZZ Repair Perineum Skin, External Approach (ICD-10-PCS; 2025-02-13)
DX: O42.02 Full-term premature rupture of membranes, onset of labor within 24 hours of rupture (principal); Z37.0 Single live birth; O62.3 Precipitate labor; O99.284 Endocrine, nutritional and metabolic diseases complicating childbirth; E03.9 Hypothyroidism, unspecified; O26.893 Other specified pregnancy related conditions, third trimester; O70.0 First degree perineal laceration during delivery; O77.0 Labor and delivery complicated by meconium in amniotic fluid; Z67.91 Unspecified blood type, Rh negative; Z3A.38 38 weeks gestation of pregnancy
CPT/HCPCS: 36415; 59025; 59409; 81003; 82803; 84112; 85025; 85027; 86592; 86850; 86900; 86901; 86902; 86920; 86921; 86922; A9270-GY; J2003; J2590; J7120

== ENCOUNTER 2025-04-08 19:55 | Emergency (ER) | payer BC ==
[2025-04-08 20:29] LABS: BASOPHILS ABSOLUTE AUTO 0.06 K/uL (0.00-0.20); BASOPHILS PERCENT AUTO 0.8 % (0.0-1.0); EOSINOPHILS ABSOLUTE AUTO 0.09 K/uL (0.00-0.45); EOSINOPHILS PERCENT AUTO 1.2 % (0.0-6.0); IMMATURE GRAN ABSOLUTE AUTO 0.01 K/uL (0.00-0.05); IMMATURE GRAN PERCENT AUTO 0.1 % (0.0-0.4); LYMPHOCYTES ABSOLUTE AUTO 3.43 K/uL (1.00-4.80); LYMPHOCYTES PERCENT AUTO 43.9 % (24.0-44.0); MEAN PLATELET VOLUME 9.0 fL (9.4-12.3); MONOCYTES ABSOLUTE AUTO 0.57 K/uL (0.00-0.80); MONOCYTES PERCENT AUTO 7.3 % (0.0-8.0); NEUTROPHILS ABSOLUTE AUTO 3.66 K/uL (1.80-7.70); NEUTROPHILS PERCENT AUTO 46.7 % (41.0-71.0); NRBC ABSOLUTE 0.00 K/uL (0.00-0.02); NRBC PERCENT 0.0 /100WBC (0.0-0.2); PLATELET COUNT,PLT 293 K/uL (150-400); RED BLOOD CELL COUNT 5.43 M/uL (4.10-5.30); WHITE BLOOD CELL COUNT,WBC 7.82 K/uL (3.9-11.3)
[2025-04-08] MEDS: Labetalol 100 MG/20 ML MDV IVPUSH ONE (20:39)
[2025-04-08 20:53] LABS: A/G RATIO 1.4 (0.9-1.6); ALANINE AMINOTRANSFERASE,ALT 24 IU/L (14-63); ASPARTATE AMNIOTRANSFERASE,AST 16 IU/L (15-37); BILIRUBIN TOTAL 0.4 mg/dL (0.2-1.0); BLOOD UREA NITROGEN,BUN 15 mg/dL (7.0-18.0); CARBON DIOXIDE,CO2 27.7 mmol/L (21.0-32.0); CHLORIDE,CL 102 mmol/L (98-107); CREATININE 1.2 mg/dL (0.6-1.0); GLUCOSE RANDOM 102 mg/dL (74-106); POTASSIUM,K 3.4 mmol/L (3.5-5.1); PROTEIN TOTAL,TP 7.1 g/dL (6.4-8.2); SODIUM,NA 140 mmol/L (136-145)
[2025-04-08 20:57] LABS: ESTIMATED GFR 62 mL/min (>60)
[2025-04-08] MEDS: Iopamidol 755 Mg/ML 100 ML Bottle IVPUSH ONE (21:17)
[2025-04-08] MEDS: Ketorolac 30 MG/ML SDV IVPUSH ONE (22:21)
[2025-04-08 22:36] VITALS: BP 121/84; PULSE 86
== END 2025-04-08 22:45 | disposition home or self-care (01) ==
LOC: MW.ED 19:55
DX: M94.0 Chondrocostal junction syndrome [Tietze] (principal); Z79.899 Other long term (current) drug therapy
CPT/HCPCS: 36415; 71045; 71275; 80053; 83735; 84484; 85025; 85379; 93005; 99285; Q9967; 93010; 99283

== ENCOUNTER 2025-05-24 19:16 | Emergency (ER) | payer BC ==
[2025-05-24] MEDS ORDERED: Sodium Chloride 0.9% 10 ML Syringe FLUSH PRN (19:37)
[2025-05-24] MEDS ORDERED: Sodium Chloride 0.9% 2.5 ML Syringe FLUSH PRN (19:37)
[2025-05-24 19:53] LABS: BASOPHILS ABSOLUTE AUTO 0.04 K/uL (0.00-0.20); BASOPHILS PERCENT AUTO 0.6 % (0.0-1.0); EOSINOPHILS ABSOLUTE AUTO 0.13 K/uL (0.00-0.45); EOSINOPHILS PERCENT AUTO 1.9 % (0.0-6.0); IMMATURE GRAN ABSOLUTE AUTO 0.01 K/uL (0.00-0.05); IMMATURE GRAN PERCENT AUTO 0.1 % (0.0-0.4); LYMPHOCYTES ABSOLUTE AUTO 2.46 K/uL (1.00-4.80); LYMPHOCYTES PERCENT AUTO 35.7 % (24.0-44.0); MEAN PLATELET VOLUME 9.0 fL (9.4-12.3); MONOCYTES ABSOLUTE AUTO 0.63 K/uL (0.00-0.80); MONOCYTES PERCENT AUTO 9.1 % (0.0-8.0); NEUTROPHILS ABSOLUTE AUTO 3.63 K/uL (1.80-7.70); NEUTROPHILS PERCENT AUTO 52.6 % (41.0-71.0); NRBC ABSOLUTE 0.00 K/uL (0.00-0.02); NRBC PERCENT 0.0 /100WBC (0.0-0.2); PLATELET COUNT,PLT 298 K/uL (150-400); RED BLOOD CELL COUNT 4.94 M/uL (4.10-5.30); WHITE BLOOD CELL COUNT,WBC 6.90 K/uL (3.9-11.3)
[2025-05-24 20:31] LABS: A/G RATIO 1.3 (0.9-1.6); ALANINE AMINOTRANSFERASE,ALT 15.0 IU/L (14-63); ASPARTATE AMNIOTRANSFERASE,AST 19.0 IU/L (15-37); BILIRUBIN TOTAL 0.3 mg/dL (0.2-1.0); BLOOD UREA NITROGEN,BUN 13.0 mg/dL (7.0-18.0); CARBON DIOXIDE,CO2 25.9 mmol/L (21.0-32.0); CHLORIDE,CL 105.0 mmol/L (98-107); CREATININE 0.9 mg/dL (0.6-1.0); EST CRCL DRUG DOSING (CG) 84.01 mL/min; GLUCOSE RANDOM 97.0 mg/dL (74-106); POTASSIUM,K 3.7 mmol/L (3.5-5.1); PROTEIN TOTAL,TP 7.0 g/dL (6.4-8.2); SODIUM,NA 142.0 mmol/L (136-145); TSH ULTRASENSITIVE 0.35 uIU/mL (0.36-3.74)
[2025-05-24 20:32] LABS: ESTIMATED GFR 87.0 mL/min (>60)
[2025-05-24 20:48] LABS: T4 FREE 0.89 ng/dL (0.76-1.46)
[2025-05-24 21:14] VITALS: BP 130/75; PULSE 75
== END 2025-05-24 21:10 | disposition home or self-care (01) ==
LOC: MW.ED 19:16
DX: R07.9 Chest pain, unspecified (principal); R00.2 Palpitations
CPT/HCPCS: 36415; 71045; 71045-26; 80053; 83735; 84439; 84443; 84484; 85025; 85379; 93010; 99283; 99285